=== PATIENT | female | born 1995 | race Caucasian/White ===

== ENCOUNTER 2018-09-25 22:00 | Emergency (ER) | payer OTHER ==
--- NOTE | 2018-09-25 23:26 | ED Physician Documentation ---
PD HPI SKIN - Stated complaint Stated Complaint: RASH/HIVES - Chief complaint Chief Complaint: Wound - History obtained from History obtained from: Patient - History of Present Illness Timing - onset: How many days ago (couple days of pebbly, burning red rash initially right side and then extending to whole face and anterior neck both sides.) Timing - duration: Days (couple) Timing - details: Gradual onset, Still present (increasing size.) Location: Face, Neck Quality / character: Painful, Burning. No: Itchy Associated symptoms: No: Fever, Myalgias Contributing factors: Other (denies change in [employer] brand. No new foods. No new meds.). No: Exposed to medication, Exposed to food Similar symptoms before: Has not had sx before Recently seen: Not recently seen Review of Systems Constitutional: denies: Fever Nose: reports: Congestion. denies: Rhinorrhea / runny nose Throat: denies: Sore throat Respiratory: denies: Dyspnea, Cough, Wheezing GI: denies: Nausea, Vomiting Skin: reports: Rash (face and anterior neck). denies: Abrasion (s), Laceration (s) Musculoskeletal: denies: Neck pain, Back pain PD PAST MEDICAL HISTORY - Past Medical History Past Medical History: No - Present Medications Home Medications: Ambulatory Orders Medication Instructions Recorded Confirmed Cetirizine [ZyrTEC] 10 mg PO DAILY #15 tablet 09/26/18 Dexamethasone [Decadron] 4 mg PO DAILY #5 tablet 09/26/18 diphenhydrAMINE [Benadryl] 25 mg PO Q4-6H PRN #20 capsule 09/26/18 - Allergies Allergies/Adverse Reactions: Allergies Allergy/AdvReac Type Severity Reaction Status Date / Time No Known Drug Allergies Allergy Verified 09/25/18 22:08 PD ED PE NORMAL - Vitals Vital signs reviewed: Yes - General General: Alert and oriented X 3, No acute distress, Well developed/nourished - HEENT HEENT: Ears normal, Moist mucous membranes, Pharynx benign - Neck Neck: Supple, no meningeal sign, No adenopathy - Cardiac Cardiac: RRR, No murmur - Respiratory Respiratory: Clear bilaterally - Derm Derm: Other (her face and anterior neck has red-based rash, with pebbly texture. No vesicles nor skin breakdown. ) Results - Vitals Vitals: Vital Signs - 24 hr 09/26/18 00:10 Heart Rate 72 Respiratory 16 Rate Blood Pressure 122/75 O2 Saturation 100 Oxygen O2 Source Room air PD MEDICAL DECISION MAKING - ED course Complexity details: considered differential (seems like a topical reaction, but could be outward manifestation of systemic allergen. ), d/w patient Departure - Departure Disposition: 01 Home, Self Care Clinical Impression: Rash due to allergy Condition: Stable Record reviewed to determine appropriate education?: Yes Instructions: ED Urticaria Prescriptions: Cetirizine [ZyrTEC] 10 mg PO DAILY #15 tablet Dexamethasone [Decadron] 4 mg PO DAILY #5 tablet diphenhydrAMINE [Benadryl] 25 mg PO Q4-6H PRN #20 capsule PRN Reason: Itching Comments: Will presume this is an allergic reaction to something. Benadryl every 4-6 hours if needed for itchiness. Use cetirizine long-acting antihistamine daily for the next week or so. Decadron steroid anti-inflammatory daily for the next 3-5 days until it is fully gone. Recheck if not fully gone over the next several days or if it is recurring frequently. Discharge Date/Time: 09/26/18 00:13
[2018-09-25] MEDS: DEXAMETHASONE 10 MG/ML VIAL PO STA (23:54)
[2018-09-25] MEDS: CETIRIZINE 10 MG TABLET PO STA (23:54)
[2018-09-25] MEDS: diphenhydrAMINE 25 MG CAPSULE PO STA (23:54)
[2018-09-26 00:10] VITALS: BP 122/75
== END 2018-09-26 00:13 | disposition home or self-care (01) ==
LOC: ED 22:00
DX: T78.40XA Allergy, unspecified, initial encounter (principal); X58.XXXA Exposure to other specified factors, initial encounter
CPT/HCPCS: 99282; 99283

== ENCOUNTER 2019-06-09 17:50 | Emergency (ER) | payer OTHER ==
--- NOTE | 2019-06-09 20:08 | ED Physician Documentation ---
History of Present Illness - Stated complaint Stated Complaint: NAUSEA, BODY ACHES, RESTLESS, FATIGUE - Chief complaint Chief Complaint: General - History obtained from History obtained from: Patient - History of Present Illness Timing: Yesterday Pain level now: 0 Improved by: nothing Worsened by: no exacerbating factors - Additonal information Additional information: c/o pain, tenderness, swelling left anterolateral neck since yesterday, becoming associated with generalized body aches, nausea, generalized headache. Called to [facility], was told earliest appointment is Sunday (patient made this appointment) Review of Systems Constitutional: reports: Myalgias, Fatigue. denies: Fever, Chills, Sweats Ears: denies: Ear pain Nose: denies: Congestion, Sinus pressure / pain Throat: reports: Other (odynophagia). denies: Sore throat Respiratory: denies: Cough GI: reports: Nausea. denies: Abdominal Pain, Vomiting : denies: Now EGA Musculoskeletal: denies: Neck pain Neurologic: reports: Headache PD PAST MEDICAL HISTORY - Past Medical History Past Medical History: No - Past Surgical History Past Surgical History: No - Present Medications Home Medications: Ambulatory Orders Medication Instructions Recorded Confirmed Cetirizine [ZyrTEC] 10 mg PO DAILY #15 tablet 09/26/18 dexAMETHasone [Decadron] 4 mg PO DAILY #5 tablet 09/26/18 diphenhydrAMINE [Benadryl] 25 mg PO Q4-6H PRN #20 capsule 09/26/18 Ondansetron Odt [Zofran] 4 mg TL Q6H PRN #10 tablet 06/09/19 - Allergies Allergies/Adverse Reactions: Allergies Allergy/AdvReac Type Severity Reaction Status Date / Time No Known Drug Allergies Allergy Verified 09/25/18 22:08 - Social History Does the pt smoke?: No Smoking Status: Never smoker Does the pt drink ETOH?: Yes Does the pt have substance abuse?: No - Immunizations Immunizations are current?: Yes - POLST Patient has POLST: No PD ED PE NORMAL - Vitals Vital signs reviewed: Yes - General General: Alert and oriented X 3, No acute distress, Well developed/nourished, Other (NAD, conversant, smiling) - HEENT HEENT: Ears normal, Moist mucous membranes, Pharynx benign - Neck Neck: Supple, no meningeal sign, No adenopathy (mild TTP left anterolateral (left of midline anteriorly) without palpable mass/lymphadenopathy. no erythema or obvious swelling) - Cardiac Cardiac: RRR, No murmur - Respiratory Respiratory: No respiratory distress, Clear bilaterally - Abdomen Abdomen: Soft, Non tender Results - Vitals Vitals: Vital Signs - 24 hr 06/09/19 06/09/19 18:06 21:37 Temperature 37.2 C Heart Rate 96 70 Respiratory 18 16 Rate Blood Pressure 131/67 H 115/75 O2 Saturation 98 100 Oxygen O2 Source Room air - Labs Labs: Laboratory Tests 06/09/19 20:32 Group A Strep Rapid Negative PD MEDICAL DECISION MAKING - ED course Complexity details: reviewed results, re-evaluated patient, considered diff erential, d/w patient Departure - Departure Disposition: 01 Home, Self Care Clinical Impression: URI, acute Condition: Good Instructions: ED Viral Syndrome Follow-Up: Jazmín Dumas ARNP [Primary Care Provider] - Prescriptions: Ondansetron Odt [Zofran] 4 mg TL Q6H PRN #10 tablet PRN Reason: Nausea / Vomiting Forms: Activity restrictions Discharge Date/Time: 06/09/19 21:37
[2019-06-09] MEDS ORDERED: ONDANSETRON ODT 4 MG TABLET TL STA (20:27)
[2019-06-09 21:38] VITALS: BP 115/75
== END 2019-06-09 21:37 | disposition home or self-care (01) ==
LOC: ED 17:50
DX: J06.9 Acute upper respiratory infection, unspecified (principal); R11.0 Nausea; M54.2 Cervicalgia
CPT/HCPCS: 87070; 87430; 99283; 99284; Q0162

== ENCOUNTER 2019-06-26 08:26 | Outpatient (CLI) | payer OTHER ==
--- NOTE | 2019-06-26 12:08 | MRI Report ---
Reason: PAIN IN FOOT Procedure Date: 06/26/2019 Accession Number: [id number] / [id number] Procedure: MRI - Foot LT W/O CPT Code: Final Report FULL RESULT: EXAM: LEFT FOREFOOT MRI WITHOUT CONTRAST EXAM DATE: 06/26/2019 07:57 AM. CLINICAL HISTORY: Pain at the first MTP joint. COMPARISON: None. TECHNIQUE: Multiplanar, multisequence T1-weighted and fluid-sensitive sequences of the forefoot without contrast. Other: None. FINDINGS: Bones: The lateral sesamoid is asymmetrically smaller than the medial sesamoid. There is minimal marrow edema within the lateral sesamoid. No definite acute fracture or bone lesion. Joints: No subluxations. Small first MTP joint effusion. The [id number]-heamluorak complex is intact. The visualized plantar plates are unremarkable. Articular Cartilage: Unremarkable. Ligaments: The visualized collateral ligaments are intact. Tendons: The flexor and extensor tendons are unremarkable. Musculature: Mild amount of edema at the distal aspect of the lateral head of the flexor hallucis brevis myotendinous unit. Other: Small amount of fluid at the first and second intermetatarsal bursae. The subcutaneous tissues are unremarkable. IMPRESSION: 1. Small first MTP joint fusion. 2. Strain at the distal aspect of the lateral head of the flexor hallucis brevis myotendinous unit. The [id number]-gfvqgkugeo complex appears grossly intact. 3. Asymmetrically small lateral sesamoid. Minimal marrow edema within the lateral sesamoid which may represent bone contusion or stress reaction. [facility]
== END 2019-06-26 08:27 | disposition home or self-care (01) ==
LOC: DI 08:26
PROVIDERS: ATTEND Registered Nurse Diabetes Educator
DX: S96.012A Strain of muscle and tendon of long flexor muscle of toe at ankle and foot level, left foot, initial encounter (principal)